=== PATIENT | male | born 1985 | race Caucasian/White ===

== ENCOUNTER → 2017-08-22 | Outpatient (CLI) | payer BC ==
[~2017-08-22] MED LIST: ALPR1T PO; CHLR10C PO; CYCL10TA9 PO; HYDR-3720 PO; PRD20T PO
--- NOTE | 2017-08-22 12:35 | Diagnostic Imaging Report ---
CLINICAL INDICATION: Patient with chronic low back pain. Patient has no leg pain. Initially, he had 2.5 years of bilateral leg pain. No known injury. EXAM: MRI of the lumbar spine performed without IV contrast. Sagittal T2, sagittal T1, sagittal T2 fat-sat, and axial T2. COMPARISON: X-ray of the lumbar spine dated 01/12/2008. FINDINGS: Five lumbar type vertebra are identified. Lumbar spine has normal alignment with no fracture or dislocation. There are Modic type I degenerative signal changes involving the L5-S1 endplates. Otherwise, the lumbar vertebra have normal T1 and T2 signal. The conus medullaris tip is not imaged on the axial T2 sequence, but the conus medullaris tip is not seen below the T12-L1 intervertebral body level. Otherwise, the visualized portions of the distal spinal cord, conus medullaris, and cauda equina have normal anatomic appearance. T11-T12: There is a small posterior disc protrusion/herniation which causes minimal impression upon the thecal sac anteriorly. T12-L1, L1-L2, L2-L3, and L3-L4: Unremarkable. L4-L5: There is a minimal diffuse disc bulge with small annular tear seen posteriorly. There is mild loss of intervertebral disc height and low T2 degenerative disc signal changes. There is no significant central spinal canal or neural foramen narrowing. L5-S1: There is a diffuse disc bulge with gflsxxvk-wg-jlftek loss of intervertebral disc height. There are superimposed hypertrophic far left lateral disc spurs and disc spurs extending into the left foraminal region. There is acjrqcfu-ql-mbwfsi left neuroforamen narrowing. There is no significant right neuroforamen narrowing. There is no significant central canal narrowing. IMPRESSION: 1: There is an L5-S1 diffuse disc bulge with hypertrophic disc spurs in the far left lateral and left foraminal region which cause yitswesi-cj-arukvj left neuroforamen narrowing. 2: There is mild L4-L5 diffuse disc bulge with annular tear posteriorly. There is no significant central canal or neuroforamen narrowing seen at this level. 3: There is a small posterior disc herniation at the T11-T12 level. This causes minimal impression upon the thecal sac anteriorly. 4: The remainder of the lumbar spine shows no other significant abnormality. Dictated by: Dictated on workstation # [id number]
== END ==
LOC: RAD 11:19
PROVIDERS: ATTEND Nurse Practitioner Community Health
DX: M51.27 Other intervertebral disc displacement, lumbosacral region (principal); M99.53 Intervertebral disc stenosis of neural canal of lumbar region; M51.16 Intervertebral disc disorders with radiculopathy, lumbar region
CPT/HCPCS: 72148

== ENCOUNTER → 2020-01-26 | Outpatient (CLI) | payer BC ==
--- NOTE | 2020-01-26 15:14 | Diagnostic Imaging Report ---
CLINICAL INDICATION: Patient has chronic neck pain but getting worse and lasting longer. EXAM: MRI of the cervical spine performed without IV contrast. Sequences include sagittal T1, sagittal T2, sagittal stir, and axial T2. COMPARISON: None. FINDINGS: There is no acute cervical spine fracture or dislocation. There is minimal Modic type II degenerative signal changes involving the C5-C6 disc space level. There is no significant paraspinal soft tissue abnormality. Limited visualization of posterior fossa is unremarkable. Cervical spinal cord is normal cord caliber with no abnormal cord signal. There are degenerative spurs involving the C5 through C7 levels. C1-C2: Unremarkable. C2-C3: Unremarkable. C3-C4: Unremarkable. C4-C5: Unremarkable. C5-C6: There is diffuse disc bulge with moderate loss of disc space height, bilateral uncinate spurs and hypertrophic posterior spurs. There is eghz-uv-rjdtxkhm central canal stenosis. There is ovjdigym-qf-ylmjth bilateral neural foramen narrowing. C6-C7: There is a diffuse disc bulge with moderate loss of disc space height and bilateral uncinate spurs. There is minimal ligamentum flavum buckling and mild bilateral facet arthropathy. There is mild central canal narrowing. There is rbklgtkj-qf-tozryd right neural foramen narrowing and moderate left neural foramen narrowing. C7-T1: Unremarkable. IMPRESSION: 1: There is C5-C6 diffuse disc bulge with uncinate spurs. There is mild central canal narrowing, iqnuymmu-mp-xiwryo right neural foramen narrowing and moderate left neural foramen narrowing. 2: There is a C6-C7 diffuse disc bulge and mild ligamentum flavum buckling and facet arthropathy. There is hfyhiawx-nr-qkkiys right neural foramen narrowing and moderate left neural foramen narrowing. Dictated by: Dictated on workstation # [id number]
== END ==
LOC: RAD 12:48
PROVIDERS: ATTEND Nurse Practitioner Community Health
DX: M50.122 Cervical disc disorder at C5-C6 level with radiculopathy (principal); M48.02 Spinal stenosis, cervical region; M47.812 Spondylosis without myelopathy or radiculopathy, cervical region
CPT/HCPCS: 72141